=== PATIENT | female | born 1950 | race Caucasian/White ===

== ENCOUNTER 2017-12-18 15:14 | Emergency (ER) | payer MEDICARE, BC ==
[~2017-12-18] VITALS: Ht 172.7 cm; Wt 56.7 kg
[2017-12-18] MEDS ORDERED: ESTRADIOL1 EAC1 TD (15:34)
[2017-12-18] MEDS ORDERED: CONCERTA18 MG PO (15:34)
[2017-12-18] MEDS ORDERED: VERAPAMIL ER P300 MG PO (15:34)
[2017-12-18] MEDS ORDERED: LOSARTAN POTASS25 MG ORAL (15:34)
[2017-12-18] MEDS ORDERED: WELLBUTRIN SR150 M1 PO (15:34)
[2017-12-18] MEDS ORDERED: LAMICTAL100 MG ORAL (15:34)
[2017-12-18] MEDS ORDERED: LEVOTHYROXINE25 MCG ORAL (15:34)
[2017-12-18] MEDS ORDERED: SERTRALINE HCL100 MG PO (15:34)
[2017-12-18] MEDS ORDERED: PROLIA60 MG/1 ML SUBQ (15:34)
[2017-12-18] MEDS ORDERED: PROGESTERONE100 MG PO (15:34)
[2017-12-18 15:39] VITALS: BP 158/100
[2017-12-18] MEDS ORDERED: Tetanus/Diptheria/Pertussis Vaccine 0.5ml Syr IM ONE (16:00)
--- NOTE | 2017-12-18 16:38 | Emergency Room Report ---
History of Present Illness General Chief Complaint: Laceration Source: Patient Present Illness HPI 67-year-old female presents to the emergency department complaining of laceration to the left eyebrow status post mechanical slip and fall approximately 45 minutes ago. Patient reports she hit her head on the ground outside she states she is not up-to-date with tetanus vaccinations. Patient reports 7 on a 10 in severity tenderness and swelling about the left side of the forehead around laceration. Patient reports bleeding has subsided at this time after her friend applied Steri-Strips. She denies taking blood thinning medications or history of bleeding disorder. Patient denies dizziness, nausea or vomiting. She reports associated headache that was slow onset. Denies CP, Palpitations, LOC, AMS, dizziness, Changes in Vision, Sensation, paresthesias, or a sudden severe headache. Allergies: Coded Allergies: No Known Allergies (Unverified , 12/18/17) Patient History Past Medical History: see triage record Past Surgical History: none Pertinent Family History: none Last Menstrual Period: 2001 Immunizations: other - not UTD with Eric Reviewed Nursing Documentation: PMH: Agreed, PSxH: Agreed Nursing Documentation-PMH Hx Hypertension: Yes Review of Systems All Other Systems: negative except mentioned in HPI Physical Exam Vital Signs Date Time Temp Pulse Resp B/P (MAP) Pulse Ox O2 Delivery O2 Flow Rate FiO2 12/18/17 15:22 97.3 95 18 158/100 96 Room Air Sp02 EP Interpretation: reviewed, normal General Appearance: no apparent distress, alert, GCS 15, non-toxic Head: normocephalic, other - left eyebrow laceration stellate, 2 cm . hematoma noted Eyes: bilateral eye normal inspection, bilateral eye PERRL, bilateral eye EOMI ENT: hearing grossly normal, normal voice Neck: full range of motion Respiratory: lungs clear, normal breath sounds, speaking full sentences Cardiovascular #1: regular rate, rhythm Musculoskeletal: back normal, gait/station normal, normal range of motion, non- tender Neurologic: alert, oriented x3, responsive, motor strength/tone normal, sensory intact, normal gait, speech normal, no pronator, other - equal rn office strength, negative pronator drift. no facial droop. , grossly normal Psychiatric: judgement/insight normal Skin: normal color, no rash, warm/dry, well hydrated, laceration - left eyebrow laceration stellate, 2 cm . hematoma noted Lymphatic: no adenopathy Procedures Laceration/Wound Repair Laceration/Wound Repair : Consent: Emergent Wound Location: head - left eyebrow/forehead Wound's Depth, Shape: superficial, stellate Wound Length (cm): 2 Wound Explored: clean Irrigated w/ Saline (ccs): 200 Wound Repaired With: Steri-strips Number of Sutures: 2 Sterile Dressing Applied?: Yes - sterile steri-strips were applied. Splint Applied?: No Sling Applied?: No Patient Tolerated: Well Complications: None Medical Decision Making PA Attestation Dr. yancey is my supervising Physician whom patient management has been discussed with. Diagnostic Impression: Primary Impression: Laceration Additional Impressions: Head injury due to trauma Qualified Codes: S09.90XA - Unspecified injury of head, initial encounter Head injury, acute, without loss of consciousness Qualified Codes: S09.90XA - Unspecified injury of head, initial encounter Forehead contusion Qualified Codes: S00.83XA - Contusion of other part of head, initial encounter ER Course 67-year-old female presents to the emergency department complaining of laceration to the left eyebrow status post mechanical slip and fall approximately 45 minutes ago. Denies LOC. Patient reports she hit her head on the ground outside she states she is not up-to-date with tetanus vaccinations. Patient reports 7 on a 10 in severity tenderness and swelling about the left side of the forehead around laceration. Patient reports bleeding has subsided at this time after her friend applied Steri-Strips. She denies taking blood thinning medications or history of bleeding disorder. Patient denies dizziness , nausea or vomiting. She reports associated headache that was slow onset. Denies CP, Palpitations, LOC, AMS, dizziness, Changes in Vision, Sensation, paresthesias, or a sudden severe headache. Ddx considered but are not limited to laceration, tendon injury, cellulitis, head injury, concussion, Vital signs: are WNL, pt. is afebrile H&PE are most consistent with: Left eyebrow laceration approx 2 cm in length, and forehead hematoma s/p fall without LOC. Patient has a normal neurological examination. ORDERS: none required at this time, the diagnosis is clinical ED INTERVENTIONS: -Tetanus vaccine was administered as pt. vaccination status was unknown. - The wound was copiously irrigated with normal saline, and explored for foreign body for which no FB was found. - The wound was approximated and closed using Steri-Strip Discussed with patient: That we make every effort to approximate the laceration as best as we can so that scarring will be as cosmetically pleasing as possible with our limited cosmetic skill set in the Emergency dept. Regardless of our best efforts there will be scarring after laceration repair. The extent of scarring is unknown at this time. d/w pt. conservative treatment, and to follow up with a primary care provider. pt given a list of primary care clinics for follow up. d/w pt. to return to the ED with worsening or new symptoms. DISCHARGE: At this time pt. is stable for d/c to home. Will provide printed patient care instructions, and any necessary prescriptions. Care plan and follow up instructions have been discussed with the patient prior to discharge. Last Vital Signs Date Time Temp Pulse Resp B/P (MAP) Pulse Ox O2 Delivery O2 Flow Rate FiO2 12/18/17 16:22 97.3 12/18/17 15:39 78 18 158/100 96 Room Air Disposition: HOME, SELF-CARE Condition: Stable Scripts Acetaminophen* (TYLENOL EXTRA STRENGTH*) 500 Mg Tablet 500 MG ORAL Q6H, #20 TAB 0 Refills Prov: Quita Castelan 12/18/17 Emollient Combination No.46 (MEDERMA) 20 Gm Cream..g. 20 GM TP TID, #20 GM 3 Refills Prov: Quita Castelan 12/18/17 Referrals: NON PHYSICIAN (PCP) Patient Instructions: Facial Laceration, Head Injury, Adult, [id number], Nonsutured Laceration Care Additional Instructions: Take medications as directed. Return immediately to nearest ED with disorientation, vomiting/nausea, one- sided weakness. Follow up with a Primary Care Provider in 3-5 days, even if your symptoms have resolved. --Please review list of primary care clinics, if you do not already have a primary care provider Return sooner to ED if new symptoms occur, or current symptoms become worse. - Please note that this Emergency Department Report was dictated using [employer] printer technology software, occasionally this can lead to erroneous entry secondary to interpretation by the dictation equipment. Quita Castelan Dec 18, 2017 16:38
[2017-12-18] MEDS ORDERED: MEDERMA20 GM TP (16:39)
[2017-12-18] MEDS ORDERED: TYLENOL EXTRA500 MG ORAL (16:44)
[2017-12-18 16:47] VITALS: BP 147/85
== END 2017-12-18 16:49 | disposition home or self-care (01) ==
LOC: EMR 16:06
DX: S01.112A Laceration without foreign body of left eyelid and periocular area, initial encounter (principal); S00.83XA Contusion of other part of head, initial encounter; I10 Essential (primary) hypertension; Z23 Encounter for immunization; W01.0XXA Fall on same level from slipping, tripping and stumbling without subsequent striking against object, initial encounter; Y92.9 Unspecified place or not applicable
CPT/HCPCS: 90471; 90715; 99284